=== PATIENT | female | born 1965 | race Caucasian/White ===

== ENCOUNTER 2023-03-30 16:05 | Inpatient (IN) | payer MEDICAID ==
[~2023-03-30] VITALS: Ht 162.6 cm; Wt 65.8 kg
[~2023-03-30 16:05] MED LIST: ACET325T53 PO; ATOR40TA PO; LEVE250T2 PO; OLAN2.5T3 PO; QUET50TA PO
[2023-03-30] MEDS ORDERED: IV NS 0.9% 250 ML IV ONE (16:30)
[2023-03-30] MEDS ORDERED: IOHEXOL-350 100 ML VIAL IV ONE (16:30)
[2023-03-30] MEDS ORDERED: CT SWABBABLE VALVE TRANS SET 1 EA INFUS.SET MC ONE (16:30)
[2023-03-30 16:32] LABS: BASOPHILS % (AUTO) 0.4 % (0.0-2.0); EOSINOPHILS % (AUTO) 0.2 % (0.0-6.0); HEMATOCRIT 37 % (33-45); HEMOGLOBIN 12.1 g/dL (11.5-14.8); LYMPHOCYTES # (AUTO) 2.2 K/uL (0.8-4.8); LYMPHOCYTES % (AUTO) 19.7 % (20.0-44.0); MEAN CORPUSCULAR HEMOGLOBIN 30 PG (26.0-33.0); MEAN CORPUSCULAR HGB CONC 33 g/dl (31.0-36.0); MEAN CORPUSCULAR VOLUME 92 fL (82-100); MONOCYTES # (AUTO) 0.7 K/uL (0.1-1.30); MONOCYTES % (AUTO) 5.8 % (2.0-12.0); NEUTROPHILS # (AUTO) 8.3 K/uL (1.8-8.9); NEUTROPHILS % (AUTO) 73.9 % (43.0-81.0); PLATELET COUNT (AUTO) 478 K/uL (150-450); RED BLOOD CELL COUNT(AUTO) 4.03 MIL/uL (4.0-5.2); RED CELL DISTRIBUTION WIDTH 12.8 % (11.5-15.0); WHITE BLOOD COUNT (AUTO) 11.3 K/uL (4.3-11.0)
[2023-03-30 16:46] LABS: CALCIUM, SERUM 9.4 mg/dL (8.5-10.1); CARBON DIOXIDE 29 mmol/L (21-32); CHLORIDE 103 mmol/L (98-107); CREATININE 0.5 mg/dL (0.6-1.3); GLUCOSE 105 mg/dL (74-106); SODIUM SERUM 138 mmol/L (136-145); UREA NITROGEN, BLOOD 12 mg/dL (7-18)
[2023-03-30 16:52] LABS: ALANINE AMINOTRANSFERASE 14 U/L (12-78); ALBUMIN 2.4 g/dL (3.4-5.0); ALKALINE PHOSPHATASE 105 U/L (46-116); ASPARTATE AMINOTRANSFERASE 13 U/L (15-37); BILIRUBIN,DIRECT 0.2 mg/dL (0.0-0.2); BILIRUBIN,TOTAL 0.6 mg/dL (0.2-1.0); TOTAL PROTEIN, SERUM 7.9 g/dL (6.4-8.2)
[2023-03-30 16:56] LABS: INR 0.97 (0.91-1.10); PARTIAL THROMBOPLASTIN TIME 27.7 SEC (24.3-34.3); PROTHROMBIN TIME 10.3 SECS (9.2-11.1)
[2023-03-30] MEDS ORDERED: HALO1TAB5 PO (17:31)
[2023-03-30] MEDS ORDERED: LEVE250T2 PO (17:31)
[2023-03-30] MEDS ORDERED: METH5TAB2 PO (17:31)
[2023-03-30] MEDS ORDERED: OLAN5TAB3 PO (17:31)
[2023-03-30] MEDS ORDERED: ATOR40TA PO (17:31)
[2023-03-30] MEDS ORDERED: ACET-868 PO (17:31)
[2023-03-30] MEDS: IV NS 0.9% 1,000 ML BAG IV ONE (17:44)
[2023-03-30] MEDS ORDERED: MAG HYDROX/AL HYDROX/SIMETH 30 ML UDC PO PRN (18:30)
[2023-03-30] MEDS ORDERED: MORPHINE SULFATE INJ 2 MG/ML DISP.SYRIN IV PRN (18:30)
[2023-03-30] MEDS ORDERED: ONDANSETRON HCL/PF 4 MG/2 ML VIAL IVP PRN (18:30)
[2023-03-30] MEDS ORDERED: hydrALAZINE HCL IV 20 MG VIAL IV PRN (18:30)
[2023-03-30] MEDS ORDERED: HALOPERIDOL 1 MG TABLET PO PRN (18:30)
[2023-03-30] MEDS ORDERED: ACETAMINOPHEN 325 MG TABLET PO PRN (18:30)
[2023-03-30] MEDS ORDERED: CEFTRIAXONE 1GM BAG (ER ONLY) 50 ML IV ONE (18:39)
[2023-03-30] MEDS: CEFTRIAXONE 1 G in IV D5W 50 ML IV SCH (18:40)
[2023-03-30] MEDS: ENOXAPARIN SODIUM 40 MG/0.4 ML DISP.SYRIN SQ SCH (18:42)
[2023-03-30 18:44] LABS: APPEARANCE,URINE CLOUDY (CLEAR); BILIRUBIN,URINE NEGATIVE (NEGATIVE); BLOOD, URINE NEGATIVE Ery/uL (NEGATIVE); COLOR,URINE YELLOW (YELLOW); KETONES,URINE NEGATIVE (NEGATIVE); LEUKOCYTE ESTERASE ,URINE NEGATIVE (NEGATIVE); NITRITE, URINE POSITIVE (NEGATIVE); PH,URINE 7.5 (5.0-8.0); PROTEIN,URINE NEGATIVE (NEGATIVE); UGLUCOSE NEGATIVE (NEGATIVE)
[2023-03-30 18:52] LABS: ADD URINE CULTURE YES; BACTERIA,URINE 1+ /HPF (None Seen); RBC,URINE 0-2 /HPF (0-2); URINE AMORPHOUS PHOSPHATES Moderate /HPF (None Seen)
[2023-03-30 19:03] LABS: AMPHETAMINE, URINE NEGATIVE (NEGATIVE); BARBITURATE, URINE NEGATIVE (NEGATIVE); BENZODIAZEPINE, URINE NEGATIVE (NEGATIVE); CANNABINOID, URINE NEGATIVE (NEGATIVE); COCCAINE, URINE NEGATIVE (NEGATIVE); OPIATE, URINE NEGATIVE (NEGATIVE); PHENCYCLIDINE SCREEN,URINE NEGATIVE (NEGATIVE)
[2023-03-30 20:30] VITALS: BP 123/66; TEMP 98.8; O2SAT 99
[2023-03-30] MEDS: LEVETIRACETAM (250 MG) 250 MG TABLET PO SCH (21:00)
[2023-03-30] MEDS: QUETIAPINE FUMARATE 25 MG TABLET PO SCH (21:59)
[2023-03-30] MEDS: METHADONE HCL 5 MG TABLET PO SCH (22:00)
[2023-03-30] MEDS ORDERED: LEVETIRACETAM (500MG) 500 MG/5 ML VIAL IV ONE (23:57)
[2023-03-31] VITALS: BP 129/57; TEMP 98.1; O2SAT 98
[2023-03-31] MEDS: LEVETIRACETAM (500MG) 250 MG in IV NS 0.9% 100 ML IV ONE (00:29)
[2023-03-31 04:00] VITALS: BP 102/50; TEMP 98.3; O2SAT 98
[2023-03-31 06:36] LABS: BASOPHILS % (AUTO) 0.4 % (0.0-2.0); EOSINOPHILS % (AUTO) 0.5 % (0.0-6.0); HEMATOCRIT 35 % (33-45); HEMOGLOBIN 11.7 g/dL (11.5-14.8); LYMPHOCYTES # (AUTO) 2.4 K/uL (0.8-4.8); LYMPHOCYTES % (AUTO) 22.4 % (20.0-44.0); MEAN CORPUSCULAR HEMOGLOBIN 31 PG (26.0-33.0); MEAN CORPUSCULAR HGB CONC 33 g/dl (31.0-36.0); MEAN CORPUSCULAR VOLUME 93 fL (82-100); MONOCYTES # (AUTO) 0.8 K/uL (0.1-1.30); NEUTROPHILS # (AUTO) 7.3 K/uL (1.8-8.9); NEUTROPHILS % (AUTO) 68.7 % (43.0-81.0); PLATELET COUNT (AUTO) 420 K/uL (150-450); RED CELL DISTRIBUTION WIDTH 12.9 % (11.5-15.0); WHITE BLOOD COUNT (AUTO) 10.6 K/uL (4.3-11.0)
[2023-03-31 07:04] LABS: BILIRUBIN,TOTAL 0.6 mg/dL (0.2-1.0); CALCIUM, SERUM 9.1 mg/dL (8.5-10.1); CREATININE 0.3 mg/dL (0.6-1.3); MAGNESIUM 2.1 mg/dL (1.8-2.4); PHOSPHORUS 3.1 mg/dL (2.5-4.9); POTASSIUM 3.3 mmol/L (3.5-5.1)
[2023-03-31 07:30] VITALS: BP 115/58; TEMP 98.8; O2SAT 100
[2023-03-31] MEDS: ATORVASTATIN 40 MG TABLET PO SCH (09:00)
[2023-03-31] MEDS: OLANZAPINE 5 MG TABLET PO SCH (09:00)
[2023-03-31 09:35] LABS: CHOLESTEROL 138 mg/dL (<200); HDL CHOLESTEROL 33 mg/dL (40-60); LDL 88 mg/dL (0-99); TRIGLYCERIDES 81 mg/dL (30-150)
[2023-03-31] MEDS: ENOXAPARIN SODIUM 40 MG/0.4 ML DISP.SYRIN SQ SCH (09:50)
[2023-03-31] MEDS ORDERED: POTASSIUM CHLORIDE 20 MEQ TAB.PRT.SR PO ONE (10:30)
[2023-03-31] MEDS: POTASSIUM CL. PREMIX PERIPHER. 50 ML IV SCH (10:50)
[2023-03-31 16:00] VITALS: BP 107/57; TEMP 98.5; O2SAT 96
[2023-03-31] MEDS: ASPIRIN 81 MG TAB.CHEW PO SCH (16:40)
[2023-03-31] MEDS: PROSOURCE / PROSTAT (PYXIS) 30 ML UDC PO SCH (16:40)
[2023-03-31] MEDS: ARGININE/GLUTAMINE/CALCIUM BMB 1 EACH POWD.PACK PO SCH (16:40)
[2023-03-31] MEDS: CEFTRIAXONE 1 G in IV D5W 50 ML IV SCH (19:32)
[2023-03-31 21:07] VITALS: BP 100/51; TEMP 98.4
[2023-03-31] MEDS: METHADONE HCL 10 MG TABLET PO SCH (21:20)
[2023-04-01 07:22] LABS: CALCIUM, SERUM 8.8 mg/dL (8.5-10.1); CREATININE 0.3 mg/dL (0.6-1.3); POTASSIUM 3.4 mmol/L (3.5-5.1)
[2023-04-01 07:30] VITALS: BP 114/53; TEMP 98.4; O2SAT 100
[2023-04-01 08:29] VITALS: BP 161/63; TEMP 98.2; O2SAT 96
[2023-04-01] MEDS: POTASSIUM CHLORIDE 20 MEQ POWDER PACKET PO ONE (09:18)
[2023-04-01] MEDS: ZINC SULFATE 220 MG CAPSULE PO SCH (09:18)
[2023-04-01] MEDS: MULTIVIT W/MINERALS 1 TAB TABLET PO SCH (09:23)
[2023-04-01] MEDS: DAKINS QUARTER STRENGTH (0.125%) 480 ML BOTTLE TOP SCH (11:35)
[2023-04-01 16:00] VITALS: BP 113/58; TEMP 99.7; O2SAT 100
[2023-04-01 20:00] VITALS: BP 116/58; TEMP 99.5; O2SAT 98
[2023-04-02 08:00] VITALS: BP 108/50; TEMP 99.3; O2SAT 99
[2023-04-02] MEDS: PROSOURCE / PROSTAT (PYXIS) 30 ML UDC PO SCH (09:02)
[2023-04-02 16:00] VITALS: BP 117/65; TEMP 99.7; O2SAT 98
[2023-04-02 20:00] VITALS: BP 105/48; TEMP 99.7; O2SAT 99
[2023-04-03 07:00] VITALS: BP 114/51; TEMP 98; O2SAT 98
== END 2023-04-03 16:24 | disposition hospice, home (50) | DRG 42 ==
LOC: ER 16:05 → TELE 19:24 → MED 03-31 09:07
PROVIDERS: ADMIT Internal Medicine; ATTEND Nurse Practitioner Acute Care
PROC: 0JB70ZZ Excision of Back Subcutaneous Tissue and Fascia, Open Approach (ICD-10-PCS; principal; 2023-04-02)
DX: G30.0 Alzheimer's disease with early onset (principal); G93.41 Metabolic encephalopathy; L89.154 Pressure ulcer of sacral region, stage 4; E44.0 Moderate protein-calorie malnutrition; R53.2 Functional quadriplegia; D68.59 Other primary thrombophilia; L89.896 Pressure-induced deep tissue damage of other site; I72.0 Aneurysm of carotid artery; E88.09 Other disorders of plasma-protein metabolism, not elsewhere classified; F02.80 Dementia in other diseases classified elsewhere, unspecified severity, without behavioral disturbance, psychotic disturbance, mood disturbance, and anxiety; Z74.01 Bed confinement status; I10 Essential (primary) hypertension; E78.5 Hyperlipidemia, unspecified; M24.571 Contracture, right ankle; M24.572 Contracture, left ankle; Z87.01 Personal history of pneumonia (recurrent); E04.2 Nontoxic multinodular goiter; Z68.24 Body mass index [BMI] 24.0-24.9, adult; R56.9 Unspecified convulsions; Z74.09 Other reduced mobility; Z79.899 Other long term (current) drug therapy; L89.526 Pressure-induced deep tissue damage of left ankle; L89.516 Pressure-induced deep tissue damage of right ankle
CPT/HCPCS: 36415; 70450-TC; 70496-TC; 70498-TC; 70551-TC; 80048-TC; 80053-TC; 80061-TC; 80076-TC; 81001; 82962-TC; 83735-TC; 84100-TC; 84484-TC; 85025-TC; 85730-TC; 87040-TC; 87081-TC; 87086-TC; 92526; 92611-TC; A4223; A6253; A6403; G0378; J0696; J1650; J1953; J3480; J7030; J7040; J7050; J7060; Q9967